=== PATIENT | female | born 1990 | race Caucasian/White ===

== ENCOUNTER 2020-11-20 21:55 | Emergency (ER) | payer OTHER ==
[2020-11-20 21:59] VITALS: BP 110/75; PULSE 92; TEMP 97.7; BMI 29.9
[2020-11-21 00:31] LABS: BASO % 0.2 % (0-2.0); EOS % 1.3 % (0-4.5); HEMATOCRIT 35.8 % (32.4-45.2); HEMOGLOBIN 12.2 GM/dL (10.7-15.3); LYMPH % 39.3 % (8-40); MCH 29.6 pg (25.7-33.7); MEAN PLT VOLUME 8.3 fl (7.5-11.1); MONO % 9.2 % (3.8-10.2); PLATELET COUNT 203 10^3/uL (134-434); RBC 4.12 M/mm3 (3.60-5.2); RDW 12.2 % (11.6-15.6)
[2020-11-21 00:51] LABS: CALCIUM 9.1 mg/dL (8.5-10.1)
[2020-11-21 00:52] LABS: ALBUMIN 3.6 g/dl (3.4-5.0); BLOOD UREA NITROGEN 13.2 mg/dL (7-18)
[2020-11-21 00:55] LABS: CREATININE 0.4 mg/dL (0.55-1.3)
[2020-11-21 00:56] LABS: BILIRUBIN,TOTAL 0.2 mg/dL (0.2-1)
[2020-11-21 00:57] LABS: TOT PROT 6.9 g/dl (6.4-8.2)
[2020-11-21 01:04] LABS: EPI CELLS >36 /uL (0-25.1); HYALINE CASTS 4 /uL (0-3.1); URINE APPEARANCE TURBID; URINE BACTERIA 3461 /uL (0-1359); URINE BILIRUBIN NEGATIVE (NEGATIVE); URINE COLOR YELLOW; URINE GLUCOSE (UA) NEGATIVE (NEGATIVE); URINE KETONE NEGATIVE (NEGATIVE); URINE LEUK ESTERASE 1+ (NEGATIVE); URINE NITRITE NEGATIVE (NEGATIVE); URINE PROTEIN NEGATIVE (NEGATIVE); URINE RBC 113 /uL (0-23.9); URINE UROBILINOGEN 0.2 mg/dL (0.2-1.0); URINE WBC 178 /uL (0-25.8)
[2020-11-21] MEDS ORDERED: CEFTRIAXONE 1 GM in DEXTROSE 5%-WATER - 50 ML IVPB ONE (01:12)
[2020-11-21] MEDS ORDERED: CEFTRIAXONE 1 GM/50 ML BAG ONE (01:17)
[2020-11-21] MEDS ORDERED: FLUCONAZOLE 50 MG TABLET PO ONE (01:51)
[2020-11-21] MEDS ORDERED: FLUCONAZOLE 150 MG TABLET PO ONE (02:15)
== END 2020-11-21 02:41 | disposition home or self-care (01) ==
LOC: JER 21:55
DX: N39.0 Urinary tract infection, site not specified (principal); B37.3 Candidiasis of vulva and vagina
CPT/HCPCS: 36415; 80053; 81003; 85025; 87086; 99284-25

== ENCOUNTER 2021-08-12 07:40 | Emergency (ER) | payer OTHER ==
[2021-08-12 08:10] VITALS: BP 93/65; PULSE 103; TEMP 98.4; BMI 30.1
[2021-08-12 10:01] LABS: HCG,QUALITATIVE URINE Positive
[2021-08-12 10:04] LABS: EPI CELLS >36 /uL (0-25.1); HYALINE CASTS 11 /uL (0-3.1); PH,URINE 5.5 (5.0-8.0); URINE APPEARANCE CLOUDY; URINE BACTERIA 1800 /uL (0-1359); URINE BILIRUBIN NEGATIVE (NEGATIVE); URINE COLOR DK YELLOW; URINE GLUCOSE (UA) NEGATIVE (NEGATIVE); URINE KETONE TRACE (NEGATIVE); URINE LEUK ESTERASE 1+ (NEGATIVE); URINE NITRITE NEGATIVE (NEGATIVE); URINE PROTEIN 2+ (NEGATIVE); URINE UROBILINOGEN 0.2 mg/dL (0.2-1.0); URINE WBC 92 /uL (0-25.8)
[2021-08-12 10:05] LABS: BASO % 0.3 % (0-2.0); EOS % 0.7 % (0-4.5); HEMATOCRIT 30.8 % (32.4-45.2); HEMOGLOBIN 10.4 GM/dL (10.7-15.3); LYMPH % 20.8 % (8-40); MCH 28.3 pg (25.7-33.7); MCHC 33.7 g/dl (32.0-36.0); MEAN PLT VOLUME 9.2 fl (7.5-11.1); MONO % 8.2 % (3.8-10.2); PLATELET COUNT 167 10^3/uL (134-434); RBC 3.67 M/mm3 (3.60-5.2); RDW 15.4 % (11.6-15.6); WHITE BLOOD COUNT 6.3 K/mm3 (4.0-10.0)
[2021-08-12 10:27] LABS: URINE RBC 625.3 /uL (0-23.9)
[2021-08-12 11:06] LABS: CALCIUM 8.3 mg/dL (8.5-10.1)
[2021-08-12 11:07] LABS: BLOOD UREA NITROGEN 8.9 mg/dL (7-18)
[2021-08-12 11:10] LABS: CREATININE 0.5 mg/dL (0.55-1.3)
[2021-08-12 11:11] LABS: BILIRUBIN,TOTAL 0.5 mg/dL (0.2-1)
[2021-08-12 11:12] LABS: TOT PROT 6.5 g/dl (6.4-8.2)
== END 2021-08-12 12:27 | disposition home or self-care (01) ==
LOC: JER 07:40
DX: O23.41 Unspecified infection of urinary tract in pregnancy, first trimester (principal); Z3A.10 10 weeks gestation of pregnancy
CPT/HCPCS: 0241U-QW; 36415; 76815-TC; 80053; 81003; 84702; 84703; 85025; 87086; 99284-25

== ENCOUNTER 2022-03-09 23:20 | Inpatient (IN) | payer OTHER ==
[2022-03-10] MEDS ORDERED: ELECTROLYTE-148 SOLN 1,000 ML IV ONE (01:50)
[2022-03-10] MEDS: ELECTROLYTE-148 SOLN 1,000 ML IV SCH (04:00)
[2022-03-10 04:38] VITALS: BMI 34.7
[2022-03-10 04:54] LABS: BASO % 0.5 % (0-2.0); HEMOGLOBIN 11.7 GM/dL (10.7-15.3); LYMPH % 26.9 % (8-40); MCH 28.9 pg (25.7-33.7); MCHC 32.5 g/dl (32.0-36.0); MEAN CELL VOLUME 88.9 fl (80-96); MEAN PLT VOLUME 8.9 fl (7.5-11.1); MONO % 5.3 % (3.8-10.2); NEUT % 66.3 % (42.8-82.8); PLATELET COUNT 155 10^3/uL (134-434); RBC 4.05 M/mm3 (3.60-5.2); RDW 14.5 % (11.6-15.6); WHITE BLOOD COUNT 6.9 K/mm3 (4.0-10.0)
[2022-03-10 05:30] LABS: INR 0.9 (0.83-1.09); PROTHROMBIN TIME (PATIENT) 10.3 SEC (9.7-13.0)
[2022-03-10 05:33] LABS: ACTIVATED PTT 29.3 SECONDS (25.2-36.5)
[2022-03-10 05:40] LABS: BLOOD UREA NITROGEN 10.2 mg/dL (7-18)
[2022-03-10 05:43] LABS: CREATININE 0.4 mg/dL (0.55-1.3)
[2022-03-10] MEDS ORDERED: FENTANYL/BUPIVACAINE/NS/PF - PCEA - 50 ML DISP.SYRIN EP ONE (05:52)
[2022-03-10] MEDS ORDERED: FENTANYL CITRATE/PF 50 MCG/ML VIAL ONE (05:57)
[2022-03-10] MEDS ORDERED: OXYTOCIN 30 UNITS in 0.9% NS 30 UNIT/500 ML INFUS.BAG IVPB ONE (05:58)
[2022-03-10] MEDS: OXYTOCIN 30 UNITS in 0.9% NS 30 UNIT/500 ML INFUS.BAG IVPB SCH (06:25)
[2022-03-10] MEDS ORDERED: NALOXONE HCL 0.4 MG/ML VIAL IVPUSH PRN (06:33)
[2022-03-10] MEDS ORDERED: FENTANYL/BUPIVACAINE/NS/PF - PCEA - 50 ML DISP.SYRIN EP SCH (06:45)
[2022-03-10] MEDS ORDERED: OXYTOCIN 20 UNITS in 0.9% NS 20 UNIT/1,000 ML INFUS.BAG IV ONE (07:45)
[2022-03-10] MEDS ORDERED: BISACODYL 10 MG SUPP.RECT RC PRN (08:19)
[2022-03-10] MEDS ORDERED: METHYLERGONOVINE MALEATE 0.2 MG/1 ML AMP IM PRN (08:19)
[2022-03-10] MEDS ORDERED: BENZOCAINE 28 GM HEMORRHOIDAL OINTMENT TP PRN (08:19)
[2022-03-10] MEDS ORDERED: WITCH HAZEL 50% (TUCKS) 40 PAD/JAR PAD TP PRN (08:19)
[2022-03-10] MEDS ORDERED: BENZOCAINE 20% 57 GM BOTTLE TP PRN (08:19)
[2022-03-10] MEDS ORDERED: oxyCODONE HCL 5 MG TABLET PO PRN (08:19)
[2022-03-10] MEDS ORDERED: ACETAMINOPHEN 325 MG TABLET (FP) PO PRN (08:19)
[2022-03-10] MEDS ORDERED: OXYTOCIN 20 UNITS in 0.9% NS 20 UNIT/1,000 ML INFUS.BAG IV SCH (08:30)
[2022-03-10] MEDS: IBUPROFEN 600 MG TABLET (FP) PO PRN ×2 (11:01→17:05)
[2022-03-11] MEDS: IBUPROFEN 600 MG TABLET (FP) PO PRN ×3 (02:21→20:55)
[2022-03-11 09:11] LABS: BASO % 0.3 % (0-2.0); EOS % 1.8 % (0-4.5); HEMATOCRIT 31.9 % (32.4-45.2); HEMOGLOBIN 10.3 GM/dL (10.7-15.3); LYMPH % 29.6 % (8-40); MCH 28.8 pg (25.7-33.7); MCHC 32.2 g/dl (32.0-36.0); MEAN CELL VOLUME 89.4 fl (80-96); MEAN PLT VOLUME 9.3 fl (7.5-11.1); MONO % 5.8 % (3.8-10.2); NEUT % 62.5 % (42.8-82.8); PLATELET COUNT 120 10^3/uL (134-434); RBC 3.57 M/mm3 (3.60-5.2); RDW 14.4 % (11.6-15.6); WHITE BLOOD COUNT 6.4 K/mm3 (4.0-10.0)
[2022-03-11] MEDS: ELECTROLYTE-148 SOLN 1,000 ML IV SCH (20:07)
[2022-03-11] MEDS: OXYTOCIN 30 UNITS in 0.9% NS 30 UNIT/500 ML INFUS.BAG IVPB SCH (20:07)
[2022-03-11] MEDS ORDERED: SENNOSIDES/DOCUSATE COMBO (SENNA PLUS) TABLET (UD) PO PRN (22:00)
[2022-03-12] MEDS: IBUPROFEN 600 MG TABLET (FP) PO PRN (09:44)
[2022-03-12 10:56] VITALS: BP 99/76; PULSE 91; RESP 16; TEMP 98.3
[2022-03-15 12:44] LABS: POC NITRAZINE NEG
== END 2022-03-12 13:55 | disposition home or self-care (01) | DRG 560 ==
LOC: JDEL 23:20 → JLDR 03-10 03:40 → J3W 03-10 10:45
PROVIDERS: ADMIT Specialist; ATTEND Specialist
PROC: 10E0XZZ Delivery of Products of Conception, External Approach (ICD-10-PCS; principal; 2022-03-10)
PROC: 10907ZC Drainage of Amniotic Fluid, Therapeutic from Products of Conception, Via Natural or Artificial Opening (ICD-10-PCS; 2022-03-10)
DX: O26.893 Other specified pregnancy related conditions, third trimester (principal); N89.8 Other specified noninflammatory disorders of vagina; O69.81X0 Labor and delivery complicated by cord around neck, without compression, not applicable or unspecified; Z3A.39 39 weeks gestation of pregnancy; Z37.0 Single live birth
CPT/HCPCS: 36415; 59409; 80048; 83986-QW; 85025; 85461; 85610; 85730; 86780; 86850; 86900; 86901; 86999; C9803-CS; U0003; U0005

== ENCOUNTER 2023-09-10 22:52 | Emergency (ER) | payer OTHER ==
[2023-09-10 23:13] VITALS: BP 96/62; PULSE 75; RESP 20; TEMP 97.9; BMI 25.7
[2023-09-10] MEDS ORDERED: ACETAMINOPHEN INJECTION 100 ML IVPB ONE (23:43)
[2023-09-11] MEDS: ACETAMINOPHEN 1000 MG/100 ML BAG IVPB ONE (00:01)
[2023-09-11] MEDS: SODIUM CHLORIDE 0.9% 500 ML INFUS.BAG IV ONE (00:02)
[2023-09-11 00:07] LABS: BASO % 0.6 % (0-2.0); HEMATOCRIT 29.2 % (32.4-45.2); HEMOGLOBIN 9.9 GM/dL (10.7-15.3); LYMPH % 38.5 % (8-40); MCHC 33.8 g/dl (32.0-36.0); MEAN CELL VOLUME 80.1 fl (80-96); MONO % 7.2 % (3.8-10.2); NEUT % 51.7 % (42.8-82.8); PLATELET COUNT 180 10^3/uL (134-434); RBC 3.65 M/mm3 (3.60-5.2); RDW 15.8 % (11.6-15.6); WHITE BLOOD COUNT 5.8 K/mm3 (4.0-10.0)
[2023-09-11 00:10] LABS: EPI CELLS >36 /uL (0-25.1); HYALINE CASTS 0 /uL (0-3.1); PH,URINE 5.5 (5.0-8.0); URINE APPEARANCE CLOUDY; URINE BACTERIA 523 /uL (0-1359); URINE BILIRUBIN NEGATIVE (NEGATIVE); URINE COLOR YELLOW; URINE GLUCOSE (UA) NEGATIVE (NEGATIVE); URINE KETONE TRACE (NEGATIVE); URINE LEUK ESTERASE TRACE (NEGATIVE); URINE NITRITE NEGATIVE (NEGATIVE); URINE PROTEIN NEGATIVE (NEGATIVE); URINE UROBILINOGEN 0.2 mg/dL (0.2-1.0); URINE WBC 77 /uL (0-25.8)
[2023-09-11 00:13] LABS: HCG,QUALITATIVE URINE Negative
[2023-09-11 00:34] LABS: CHLORIDE 111 mmol/L (98-107); POTASSIUM 3.7 mmol/L (3.5-5.1); SODIUM 140 mmol/L (136-145)
[2023-09-11 00:37] LABS: ALBUMIN 3.4 g/dl (3.4-5.0); ANION GAP 4 mmol/L (4-13); BLOOD UREA NITROGEN 16.5 mg/dL (7-18); CALCIUM 8.3 mg/dL (8.5-10.1); CO2 25 mmol/L (21-32); GLUCOSE,RANDOM 86 mg/dL (74-106)
[2023-09-11 00:40] LABS: CREATININE 0.5 mg/dL (0.55-1.3); SGOT/AST 7 U/L (15-37); SGPT/ALT 13 U/L (13-61)
[2023-09-11 00:42] LABS: BILIRUBIN,TOTAL 0.3 mg/dL (0.2-1); TOT PROT 6.7 g/dl (6.4-8.2)
[2023-09-11 00:43] LABS: ALK PHOS 46 U/L (45-117)
[2023-09-11 15:48] LABS: URINE CRYSTALS PRESENT /hpf
== END 2023-09-11 03:01 | disposition home or self-care (01) ==
LOC: JER 22:52
PROC: 3E033NZ Introduction of Analgesics, Hypnotics, Sedatives into Peripheral Vein, Percutaneous Approach (ICD-10-PCS; principal; 2023-09-10)
DX: R10.32 Left lower quadrant pain (principal); N93.9 Abnormal uterine and vaginal bleeding, unspecified; N83.202 Unspecified ovarian cyst, left side
CPT/HCPCS: 36415; 76830-TC; 80053; 81003; 84702; 84703; 85025; 87086; 96374; 99284-25; J0131

== ENCOUNTER 2023-10-29 18:45 | Emergency (ER) | payer OTHER ==
[2023-10-29 18:52] VITALS: BP 98/65; PULSE 89; RESP 18; TEMP 97.8; BMI 23.5
[2023-10-29 20:31] LABS: EPI CELLS >36 /uL (0-25.1); HYALINE CASTS 3 /uL (0-3.1); PH,URINE 5.5 (5.0-8.0); URINE APPEARANCE CLEAR; URINE BACTERIA 237 /uL (0-1359); URINE BILIRUBIN NEGATIVE (NEGATIVE); URINE COLOR DK YELLOW; URINE GLUCOSE (UA) NEGATIVE (NEGATIVE); URINE KETONE TRACE (NEGATIVE); URINE LEUK ESTERASE NEGATIVE (NEGATIVE); URINE NITRITE NEGATIVE (NEGATIVE); URINE PROTEIN NEGATIVE (NEGATIVE); URINE WBC 21 /uL (0-25.8)
[2023-10-29 20:48] LABS: URINE RBC 35 /uL (0-23.9)
== END 2023-10-29 23:45 | disposition home or self-care (01) ==
LOC: JER 18:45
DX: N83.201 Unspecified ovarian cyst, right side (principal); R10.32 Left lower quadrant pain
CPT/HCPCS: 76830-TC; 81003; 84703; 87086; 99284-25

== ENCOUNTER 2024-07-26 01:57 | Emergency (ER) | payer OTHER ==
[2024-07-26 02:14] VITALS: BP 98/60; PULSE 78; RESP 16; TEMP 98.1; BMI 24.2
[2024-07-26] MEDS ORDERED: ACETAMINOPHEN 325 MG TABLET (FP) ONE (02:56)
[2024-07-26] MEDS ORDERED: ONDANSETRON *ODT* 4 MG TABLET ONE (02:56)
[2024-07-26] MEDS: ONDANSETRON *ODT* 4 MG TABLET SL ONE (03:02)
[2024-07-26] MEDS: ACETAMINOPHEN 325 MG TABLET (FP) PO ONE (03:02)
== END 2024-07-26 03:33 | disposition home or self-care (01) ==
LOC: JER 01:57
DX: R11.2 Nausea with vomiting, unspecified (principal); A05.9 Bacterial foodborne intoxication, unspecified; R10.84 Generalized abdominal pain
CPT/HCPCS: 99283-25; Q0162